=== PATIENT | female | born 1980 | race Caucasian/White ===

== ENCOUNTER 2018-02-09 18:53 | Inpatient (IN) | payer OTHER ==
[~2018-02-09] VITALS: Ht 154.9 cm; Wt 78.2 kg
--- NOTE | ~2018-02-09 | EKG ---
[place], [place] ELECTROCARDIOGRAM REPORT NAME: MARCIN HAGAN UNIT #: [id number] ROOM: 528 DOCTOR: JADA DRAFT REPORT BIRTHDATE: [birth year] [facility] [place] Test Date: 2018-02-09 Test Time: 19:34:06 Pat Name: MARCIN HAGAN Department: Room: 528 Gender: F Purchasing Specialist: Maurice Bañuelos : 1980 Requested By: KAMRAN HILLIARD Order Number: [id number] Reading MD: Katerina Rodriguez MD Measurements Intervals [place] Rate: 88 P: 42 NM: 146 QRS: 63 QRSD: 100 T: 2 QT: 366 QTc: 443 Interpretive Statements Sinus tachycardia Atrial premature complexes Borderline T abnormalities, anterior leads Electronically Signed On 02-14-2018 8:45:29 PST by Katerina Rodriguez MD CM:EKGRPT:ELECTROCARDIOGRAM REPORT [id number] KAMRAN CLAYTON DRAFT REPORT KAMRAN HILLIARD DO
[2018-02-09 18:57] VITALS: BP 109/66
[2018-02-09 19:38] LABS: BASO % 0.4 % (0.0-1.0); EOS # 0.2 10*3/uL (0.0-0.4); EOS % 1.8 % (1.0-4.0); HEMOGLOBIN 10.1 g/dl (12.0-16.0); LYMPH # 2.9 10*3/uL (1.3-4.4); LYMPH % 28.7 % (27.0-41.0); MEAN CELL VOLUME 93.2 fl (81.0-99.0); MEAN CORPUSCULAR HGB 31.4 pg (27.0-31.0); MEAN CORPUSCULAR HGB CONC 33.7 g/dl (33.0-37.0); MEAN PLATELET VOLUME 10.6 fl (9.6-12.3); MONO # 0.8 10*3/uL (0.1-1.0); MONO % 7.5 % (3.0-9.0); NEUT # 6.1 10*3/uL (2.3-7.9); NEUT % 61.2 % (47.0-73.0); PLATELET COUNT AUTOMATED 210 10*3/uL (130-400); RED BLOOD COUNT 3.22 10*6/uL (4.10-5.10); RED CELL DISTRI WIDTH 13.1 % (0-14.5)
[2018-02-09 19:48] LABS: ACT PARTIAL THROMBO TIME 24.5 SECONDS (20.8-31.5); INTERNATIONAL NORM RATIO 0.9 (2.0-3.5)
[2018-02-09 19:56] LABS: ALBUMIN 2.9 gm/dl (3.1-4.5); ALKALINE PHOSPHATASE 75 U/L (45-117); BUN 7 mg/dl (7-24); CHLORIDE 107 mmol/L (98-107); CREATININE 0.81 mg/dL (0.55-1.02); POTASSIUM 2.9 mmol/L (3.5-5.1); SGOT/AST 12 IU/L (3-35); SGPT/ALT 22 U/L (12-78); SODIUM 140 mmol/L (136-145); TOTAL PROTEIN 6.9 gm/dL (6.4-8.2)
[2018-02-09 20:00] LABS: TROPONIN I < 0.015 ng/ml (<0.045)
[2018-02-09 20:49] LABS: BILIRUBIN NEGATIVE (NEGATIVE); BLOOD 2+ (NEGATIVE); CLARITY SL CLOUDY (CLEAR); COLOR RED (YELLOW); GLUCOSE 1+ (NEGATIVE); KETONE TRACE (NEGATIVE); LEUKO ESTERASE 2+ (NEGATIVE); NITRITE POSITIVE (NEGATIVE); UROBILINOGEN >= 8.0 E.U./dl (0.2-1.0)
[2018-02-09 20:59] LABS: BACTERIA 1+; EPITHELIAL CELLS TNTC; RBC TNTC rbc/hpf (0-2)
[2018-02-09 21:00] LABS: WBC 31-40 wbc/hpf (0-5)
[2018-02-09 22:10] VITALS: BP 118/60
[2018-02-10] VITALS: BP 90/47
[2018-02-10 00:30] VITALS: BP 102/58
[2018-02-10 06:29] LABS: ALBUMIN 2.8 gm/dl (3.1-4.5); ALKALINE PHOSPHATASE 75 U/L (45-117); BUN 8 mg/dl (7-24); CHLORIDE 110 mmol/L (98-107); CHOLESTEROL 195 mg/dL (<200); CREATININE 0.72 mg/dL (0.55-1.02); HDL CHOLESTEROL 23 mg/dl (40-60); LDL CHOLESTEROL 112 mg/dL (9-159); PHOSPHOROUS 3.4 mg/dL (2.5-4.9); SGOT/AST 12 IU/L (3-35); SGPT/ALT 22 U/L (12-78); SODIUM 141 mmol/L (136-145); TRIGLYCERIDES 302 mg/dl (<150); VLDL CHOLESTEROL 60 mg/dL (6-40)
[2018-02-10 06:34] LABS: BASO % 0.2 % (0.0-1.0); EOS % 0.1 % (1.0-4.0); HEMATOCRIT 31.3 % (37.0-47.0); HEMOGLOBIN 10.2 g/dl (12.0-16.0); LYMPH # 1.2 10*3/uL (1.3-4.4); LYMPH % 14.5 % (27.0-41.0); MEAN CELL VOLUME 95.7 fl (81.0-99.0); MEAN CORPUSCULAR HGB 31.2 pg (27.0-31.0); MEAN CORPUSCULAR HGB CONC 32.6 g/dl (33.0-37.0); MEAN PLATELET VOLUME 11.2 fl (9.6-12.3); MONO # 0.2 10*3/uL (0.1-1.0); MONO % 2.2 % (3.0-9.0); NEUT % 82.6 % (47.0-73.0); PLATELET COUNT AUTOMATED 206 10*3/uL (130-400); RED BLOOD COUNT 3.27 10*6/uL (4.10-5.10); RED CELL DISTRI WIDTH 13.2 % (0-14.5); WHITE BLOOD COUNT 8.5 10*3/uL (4.8-10.8)
[2018-02-10 06:35] LABS: THYROID STIM HORMONE (HS) 0.458 uIU/ml (0.358-4.75)
[2018-02-10 06:46] LABS: POTASSIUM 4.3 mmol/L (3.5-5.1)
[2018-02-10 07:44] LABS: VITAMIN D, 25-HYDROXY 11.1 ng/mL (30-100)
[2018-02-10 08:00] VITALS: BP 112/64
[2018-02-10 12:00] VITALS: BP 120/62
[2018-02-10 16:00] VITALS: BP 119/76
[2018-02-10 20:00] VITALS: BP 123/63
[2018-02-10] MEDS ORDERED: FLOMAX0.4 MG PO (20:26)
[2018-02-10] MEDS ORDERED: LEVSIN0.125 M2 PO (20:26)
[2018-02-10] MEDS ORDERED: Ciprofloxacin500 MG PO (20:26)
[2018-02-10] MEDS ORDERED: PYRIDIUM200 M1 PO (20:28)
[2018-02-10] MEDS ORDERED: Percocet 325 MG1 TAB PO (20:33)
[2018-02-10] MEDS ORDERED: TRAZODONE50 MG PO (20:34)
[2018-02-10] MEDS ORDERED: IBU800 M1 PO (20:34)
== END 2018-02-10 20:39 | disposition home or self-care (01) | DRG 871 ==
LOC: ED 18:53 → EDHOLD 21:17 → 5E 21:17
PROVIDERS: Internal Medicine; Student in an Organized Health Care Education/Training Program
DX: A41.9 Sepsis, unspecified organism (principal); J96.00 Acute respiratory failure, unspecified whether with hypoxia or hypercapnia; N39.0 Urinary tract infection, site not specified; E44.0 Moderate protein-calorie malnutrition; E87.6 Hypokalemia; D64.9 Anemia, unspecified; R73.9 Hyperglycemia, unspecified; E55.9 Vitamin D deficiency, unspecified; F17.200 Nicotine dependence, unspecified, uncomplicated; M79.7 Fibromyalgia; Z71.6 Tobacco abuse counseling; Z87.442 Personal history of urinary calculi; Z90.49 Acquired absence of other specified parts of digestive tract; Z98.51 Tubal ligation status; Z68.32 Body mass index [BMI] 32.0-32.9, adult